=== PATIENT | male | born 1960 | race Caucasian/White ===

== ENCOUNTER 2021-08-25 11:41 | Outpatient (CLI) | payer MEDICARE, BC, SELFPAY ==
--- NOTE | 2021-09-13 13:03 | WPDHOMESLEEP ---
Sleep Study - Home Unattended Date of Study: 08/25/21 <Sharon Hernandez DO - Last Filed: 09/13/21 13:21> Ordering Provider: Iván Kapoor MD <Sharon Hernandez DO - Last Filed: 09/13/21 13:21> Interpreting Provider: Sharon Hernandez DO <Sharon Hernandez DO - Last Filed: 09/13/21 13:21> Home Sleep Study Type: Watch PAT <Sharon Hernandez DO - Last Filed: 09/13/21 13:21> Height: 1.78 m <Sharon Hernandez DO - Last Filed: 09/13/21 13:21> Weight: 132.903 kg <Sharon Hernandez DO - Last Filed: 09/13/21 13:21> Body Mass Index: 42.0 <Sharon Hernandez DO - Last Filed: 09/13/21 13:21> Neck Circumference (inches): 18.25 <Sharon Hernandez DO - Last Filed: 09/13/21 13:21> [place]: 4 <Sharon Hernandez DO - Last Filed: 09/13/21 13:21> Reason for Sleep Study Multiple nighttime awakenings <Sharon Hernandez DO - Last Filed: 09/13/21 13:21> Sleep History The patient is a 60-year-old male with type 2 diabetes, hypertension and anxiety that had a home sleep test ordered by his primary care physician for multiple nighttime awakenings. The patient would wake up during the night in a panic. The patient denies awakening from sleep short of breath. He denies awakening at night with heartburn, belching or cough. He occasionally snores loud enough that others complain. He rarely has trouble sleeping when he has a cold. He denies waking up gasping for air throughout the night. He denies having breathing problems at night observed by others. He occasionally sweats excessively at night. He rarely has heart palpitations throughout the night. He rarely falls asleep during the day and never while driving. He denies sleep paralysis, cataplexy and hypnagogic / hypnopompic hallucinations. He rarely has nightmares. He rarely has thoughts racing through his mind. He rarely feels sad, depressed or anxious. He denies kicking during the night. He denies experiencing crawling and aching feelings in his legs as well as leg pain during the night. He occasionally grinds his teeth during sleep but rarely awakens with morning jaw pain. He is frequently bothered by pain during the day but rarely awakened by pain during the night. He occasionally wakes up feeling stiff in the morning with sore and achy muscles. The patient goes to bed between 10 and 10:30 p.m. on both weekdays and weekends. It takes him 10-15 minutes to fall asleep. He will wake up once throughout the night. When he awakens, he will stay in bed and go back to sleep. It takes him 5-10 minutes to fall back asleep. He wakes up between 530 and 6:00 a.m. on weekdays and weekends. He typically gets 6-7 hours of sleep per night. He will stay in bed for 10 minutes after waking up in the morning. He currently lives with his and 4 children. He does not consume any caffeinated beverages within 2 hours of bedtime. He does not engage in physical exercise before bedtime. He will watch television before falling asleep. He does not take naps in the afternoon or the evening. He quit smoking 33 years ago. He will drink 12 oz of a caffeinated beverage per day. He denies alcohol and recreational drug use. <Sharon Hernandez DO - Last Filed: 09/13/21 13:21> [facility] Past Medical History Medical History: Medical History Achilles tendinitis, left leg Anxiety Cataract Chronic low back pain with right-sided sciatica Controlled type 2 diabetes mellitus without complication, without long-term current use of insulin COVID-19 (~11/09/20) Elevated liver enzymes Essential (primary) hypertension Hypersomnia Mixed hyperlipidemia Morbid obesity with BMI of 40.0-44.9, adult Nocturia Osteoarthritis involving multiple joints on both sides of body Polyp of colon Seasonal allergic rhinitis <Sharon Hernandez DO - Last Filed: 09/13/21 13:21> Family H
[2021-09-13 13:20] VITALS: BMI 42.0
== END 2021-08-26 11:51 | disposition home or self-care (01) ==
LOC: ANHCSM 08-26 11:41
PROVIDERS: PCP Family Medicine; Visit Provider Family Medicine
DX: G47.10 Hypersomnia, unspecified (principal); G47.33 Obstructive sleep apnea (adult) (pediatric)
CPT/HCPCS: 95800

== ENCOUNTER 2021-10-19 07:34 | Outpatient (CLI) | payer MEDICARE, BC, SELFPAY ==
--- NOTE | 2021-11-01 21:35 | WPDSLEEPSTUD ---
Sleep Study Date of Study: 10/19/21 <Sharon Hernandez DO - Last Filed: 11/02/21 17:23> Ordering Provider: Iván Kapoor MD <Sharon Hernandez DO - Last Filed: 11/02/21 17:23> Interpreting Physician: Sharon Hernandez DO <Sharon Hernandez DO - Last Filed: 11/02/21 17:23> Sleep Study Type: CPAP Titration <Sharon Hernandez DO - Last Filed: 11/02/21 17:23> Height: 1.8 m <Sharon Hernandez DO - Last Filed: 11/02/21 17:23> Weight: 133.81 kg <Sharon Hernandez DO - Last Filed: 11/02/21 17:23> Body Mass Index: 41.1 <Sharon Hernandez DO - Last Filed: 11/02/21 17:23> Neck Circumference (inches): 18 <Sharon Hernandez DO - Last Filed: 11/02/21 17:23> [place]: 5 <Sharon Hernandez DO - Last Filed: 11/02/21 17:23> Reason for Sleep Study The patient had an HSAT on 08/25/2021 that showed an AHI of 13.8. The patient had a central apnea index of 3.5. It was recommended he have a PAP Titration study. <Sharon Hernandez DO - Last Filed: 11/02/21 17:23> Sleep History The patient is a 60-year-old male with type 2 diabetes, hypertension and anxiety that had a home sleep test ordered by his primary care physician for multiple nighttime awakenings. The patient would wake up during the night in a panic. The patient denies awakening from sleep short of breath. He denies awakening at night with heartburn, belching or cough. He occasionally snores loud enough that others complain. He rarely has trouble sleeping when he has a cold. He denies waking up gasping for air throughout the night. He denies having breathing problems at night observed by others. He occasionally sweats excessively at night. He rarely has heart palpitations throughout the night. He rarely falls asleep during the day and never while driving. He denies sleep paralysis, cataplexy and hypnagogic / hypnopompic hallucinations. He rarely has nightmares. He rarely has thoughts racing through his mind. He rarely feels sad, depressed or anxious. He denies kicking during the night. He denies experiencing crawling and aching feelings in his legs as well as leg pain during the night. He occasionally grinds his teeth during sleep but rarely awakens with morning jaw pain. He is frequently bothered by pain during the day but rarely awakened by pain during the night. He occasionally wakes up feeling stiff in the morning with sore and achy muscles. The patient goes to bed between 10 and 10:30 p.m. on both weekdays and weekends. It takes him 10-15 minutes to fall asleep. He will wake up once throughout the night. When he awakens, he will stay in bed and go back to sleep. It takes him 5-10 minutes to fall back asleep. He wakes up between 530 and 6:00 a.m. on weekdays and weekends. He typically gets 6-7 hours of sleep per night. He will stay in bed for 10 minutes after waking up in the morning. He currently lives with his and 4 children. He does not consume any caffeinated beverages within 2 hours of bedtime. He does not engage in physical exercise before bedtime. He will watch television before falling asleep. He does not take naps in the afternoon or the evening. He quit smoking 33 years ago. He will drink 12 oz of a caffeinated beverage per day. He denies alcohol and recreational drug use. <Sharon Hernandez DO - Last Filed: 11/02/21 17:23> [facility] Past Medical History Medical History: Medical History Achilles tendinitis, left leg Anxiety Cataract Chronic low back pain with right-sided sciatica Controlled type 2 diabetes mellitus without complication, without long-term current use of insulin COVID-19 (~11/09/20) Elevated liver enzymes Essential (primary) hypertension Hypersomnia Mixed hyperlipidemia Morbid obesity with BMI of 40.0-44.9, adult Nocturia Osteoarthritis involving multiple joints on both sides of body
[2021-11-02 17:21] VITALS: BMI 41.1
== END 2021-10-20 05:37 | disposition home or self-care (01) ==
LOC: ANHCSM 07:35
PROVIDERS: PCP Family Medicine; Visit Provider Family Medicine
DX: G47.33 Obstructive sleep apnea (adult) (pediatric) (principal)
CPT/HCPCS: 95811

== ENCOUNTER 2022-04-06 01:56 | Day surgery (SDC) | payer MEDICARE, BC, SELFPAY ==
[2022-03-27 11:39] VITALS: BMI 41.2
--- NOTE | 2022-04-05 15:54 | WPDANESEPPF ---
Anes - Initial Pre Proc Eval Procedure: Operation Date: 04/06/22 12:30 Proposed Procedures p Screening Colonoscopy - Cj Bahena MD Date/Time: 04/05/22 15:54 Surgeon: Cj Bahena MD Pre Op Diagnosis: hx of colon polyps Patient Data Age: 61 Gender: M Height: 1.8 m Weight: 134 kg Allergies Allergy/AdvReac Type Severity Reaction Status Date / Time No Known Allergies Allergy Verified 03/27/22 11:58 Home Medications Medication Instructions Recorded Confirmed Type cetirizine 10 mg capsule 10 mg PO DAILY PRN allergy symptoms 03/31/20 03/27/22 History fluticasone propionate 50 1 spray intranasal BID 03/31/20 03/27/22 History mcg/actuation nasal spray,suspension (Flonase Allergy Relief) atorvastatin 40 mg tablet 40 mg PO DAILY #90 tabs 07/14/21 03/27/22 Rx cyclobenzaprine 10 mg tablet 10 mg PO TID PRN muscle spasm #180 07/14/21 03/27/22 Rx tabs metformin 500 mg tablet,extended 1,000 mg PO BID #120 tabs 10/05/21 03/27/22 Rx release 24 hr alprazolam 0.25 mg tablet 0.25 mg PO TID PRN anxiety #30 tabs 11/04/21 03/27/22 Rx blood sugar diagnostic (Accu-Chek #100 ea 11/18/21 03/27/22 Rx Hailey Plus test strips) irbesartan 300 1 tablet PO DAILY #90 tabs 01/01/22 03/27/22 Rx mg-hydrochlorothiazide 12.5 mg tablet (Avalide) lancets (Accu-Chek Softclix #100 ea 01/19/22 03/27/22 Rx Lancets) sodium sul 1.479 gram-potas ch See Rx Instructions PO PER PKG DIR 03/24/22 03/27/22 Rx 0.188 gram-magnes sul 0.225 gram #24 tabs tablet (Sutab) ibuprofen 800 mg tablet 800 mg PO TID PRN pain #270 tabs 03/27/22 03/27/22 Rx Patient hx anesthesia problems: none Family hx anesthesia problems: none Results Review: All pre-operative results and documents have been reviewed as part of the pre-operative evaluation. [facility] Past Medical History Medical History (Updated 04/06/22 @ 11:30 by Cj Bahena MD) Achilles tendinitis, left leg Anxiety Cataract Chronic low back pain with right-sided sciatica Contact dermatitis (12/23/21) contact dermatitis from CPAP mask 12/23/2021 Controlled type 2 diabetes mellitus without complication, without long-term current use of insulin COVID-19 (~11/09/20) Elevated liver enzymes Essential (primary) hypertension Hypersomnia Mixed hyperlipidemia Morbid obesity with BMI of 40.0-44.9, adult Nocturia Osteoarthritis involving multiple joints on both sides of body Polyp of colon Seasonal allergic rhinitis Family History Family History Father Diabetes mellitus Family history of hypercholesterolemia Hypertension Cerebrovascular accident Social History Social History (Updated 02/23/22 @ 11:13 by Rebeca Gillis MA) Smoking packs per day: 2.5 Smoking cigarettes per day: 50.0 Years smoked: 14 Smoking pack-years: 35.00 Smoking status: Former smoker Tobacco type: cigarettes Smoking end date: 10/22/87 Alcohol intake: current Alcohol use details: rare Substance use: never Substance use type: does not use Living arrangements: with family Spiritual care concerns: No Anes - Eval Final PreProcedure Day of Procedure 04/05/22 15:54 Patient weight: morbidly obese Heart: regular rate and rhythm Lungs: clear to auscultation Airway: Mallampati scale class II Neurological: alert and oriented Last oral intake: >/= 8 hours ASA classification: III Emergent: no Anesthetic plan: proceed Anesthesia type and monitoring: general GIVS and standard monitoring Results Review: All pre-operative results and documents have been reviewed as part of the pre-operative evaluation. Informed Consent: The patient's anesthetic plan and its attendant risks and benefits were discussed with the patient/family/POA. Questions were solicited and answers provided to the satisfaction of the patient/family/POA.
[2022-04-06 11:09] VITALS: BP 130/90; PULSE 75; RESP 20; TEMP 36.3; O2SAT 97
[2022-04-06] MEDS: LACTATED RINGERS 1,000 ML 150 ML IV CONT (11:18)
[2022-04-06 11:22] LABS: Glucose Point of Care 158 mg/dl (65-105)
--- NOTE | 2022-04-06 11:29 | PM.IMHP ---
H&P: HPI History of Present Illness Date/Time: 04/06/22 11:29 Chief Complaint: History of colon polyps. Narrative: This is a 61-year-old white male patient presents for surveillance colonoscopy. Patient has a history of adenomatous colon polyp removed from the colon in 2014. Patient reports that his current weight appetite bowel movements are normal. He denies abdominal pain. He has had no bleeding. Family history is noncontributory. He presents today for follow-up colonoscopy. Review of Systems Review of Systems: Review of systems noncontributory. [facility] Past Medical History Medical History (Updated 04/06/22 @ 11:30 by Cj Bahena MD) Achilles tendinitis, left leg Anxiety Cataract Chronic low back pain with right-sided sciatica Contact dermatitis (12/23/21) contact dermatitis from CPAP mask 12/23/2021 Controlled type 2 diabetes mellitus without complication, without long-term current use of insulin COVID-19 (~11/09/20) Elevated liver enzymes Essential (primary) hypertension Hypersomnia Mixed hyperlipidemia Morbid obesity with BMI of 40.0-44.9, adult Nocturia Osteoarthritis involving multiple joints on both sides of body Polyp of colon Seasonal allergic rhinitis Family History Family History Father Diabetes mellitus Family history of hypercholesterolemia Hypertension Cerebrovascular accident Social History Social History (Updated 02/23/22 @ 11:13 by Rebeca Gillis MA) Smoking packs per day: 2.5 Smoking cigarettes per day: 50.0 Years smoked: 14 Smoking pack-years: 35.00 Smoking status: Former smoker Tobacco type: cigarettes Smoking end date: 10/22/87 Alcohol intake: current Alcohol use details: rare Substance use: never Substance use type: does not use Living arrangements: with family Spiritual care concerns: No Meds Home Medications and Allergies Home Medications Medication Instructions Recorded Confirmed Type cetirizine 10 mg capsule 10 mg PO DAILY PRN allergy symptoms 03/31/20 03/27/22 History fluticasone propionate 50 1 spray intranasal BID 03/31/20 03/27/22 History mcg/actuation nasal spray,suspension (Flonase Allergy Relief) atorvastatin 40 mg tablet 40 mg PO DAILY #90 tabs 07/14/21 03/27/22 Rx cyclobenzaprine 10 mg tablet 10 mg PO TID PRN muscle spasm #180 07/14/21 03/27/22 Rx tabs metformin 500 mg tablet,extended 1,000 mg PO BID #120 tabs 10/05/21 03/27/22 Rx release 24 hr alprazolam 0.25 mg tablet 0.25 mg PO TID PRN anxiety #30 tabs 11/04/21 03/27/22 Rx blood sugar diagnostic (Accu-Chek #100 ea 11/18/21 03/27/22 Rx Hailey Plus test strips) irbesartan 300 1 tablet PO DAILY #90 tabs 01/01/22 03/27/22 Rx mg-hydrochlorothiazide 12.5 mg tablet (Avalide) lancets (Accu-Chek Softclix #100 ea 01/19/22 03/27/22 Rx Lancets) sodium sul 1.479 gram-potas ch See Rx Instructions PO PER PKG DIR 03/24/22 03/27/22 Rx 0.188 gram-magnes sul 0.225 gram #24 tabs tablet (Sutab) ibuprofen 800 mg tablet 800 mg PO TID PRN pain #270 tabs 03/27/22 03/27/22 Rx Allergies Allergy/AdvReac Type Severity Reaction Status Date / Time No Known Allergies Allergy Verified 03/27/22 11:58 Vital Signs Vital Signs - 24 hr 04/06/22 11:09 Temperature 97.3 F L Pulse Rate 75 Respiratory Rate 20 Blood Pressure 130/90 Pulse Oximetry 97 Oxygen Delivery Room Air Exam Narrative: Physical exam reveals patient to be alert. Vital signs stable. HEENT exam is unremarkable. Patient is anicteric. Lungs are clear to auscultation and percussion. Heart is without murmur or extra sounds. Abdominal exam bowel sounds are present soft nontender with no organomegaly. Digital external rectal exam is normal. Assessment and Plan Assessment and plan (1) History of colon polyps: Code(s): Z86.010 - Personal history of colonic polyps Status: Acute Assessment a
[2022-04-06 12:27] VITALS: BP 99/70; PULSE 67; RESP 25; O2SAT 96
[2022-04-06 12:37] VITALS: BP 109/71; PULSE 61; RESP 21; O2SAT 94
[2022-04-06 12:47] VITALS: BP 108/69; PULSE 60; RESP 17; O2SAT 97
== END 2022-04-06 12:49 | disposition home or self-care (01) ==
PROVIDERS: PCP Family Medicine; Visit Provider Internal Medicine Gastroenterology
PROC: 0DJD8ZZ Inspection of Lower Intestinal Tract, Via Natural or Artificial Opening Endoscopic (ICD-10-PCS; CPT 45378; principal; 2022-04-06 12:30)
DX: Z12.11 Encounter for screening for malignant neoplasm of colon (principal); K64.8 Other hemorrhoids; K57.30 Diverticulosis of large intestine without perforation or abscess without bleeding; Z86.010 Personal history of colon polyps; E11.9 Type 2 diabetes mellitus without complications; I10 Essential (primary) hypertension; E78.2 Mixed hyperlipidemia; E66.01 Morbid (severe) obesity due to excess calories; Z68.41 Body mass index [BMI] 40.0-44.9, adult; Z79.84 Long term (current) use of oral hypoglycemic drugs; Z87.891 Personal history of nicotine dependence
CPT/HCPCS: G0105; 82948; J2704; J7120

== ENCOUNTER → 2023-01-05 09:19 | Outpatient (CLI) | payer MEDICARE, BC, SELFPAY ==
--- NOTE | ~2023-01-05 | XR_ITS ---
EXAMINATION: XR foot RT min 3V DATE: 01/05/2023 09:32 INDICATION: Acute right great toe pain. TECHNIQUE: 4 views of right foot were obtained. COMPARISON: None. FINDINGS: There is mild hallux valgus. No fracture. There is mild osteoarthritis of first metatarsoph alangeal joint and some of the interphalangeal and midfoot joints. There is an enthesophyte at planta r aspect of calcaneal tuberosity. IMPRESSION: 1. Mild polyarticular osteoarthritis. 2. Mild hallux valgus. Reviewed, dictated and finalized at location A.
== END ==
PROVIDERS: PCP Family Medicine; Visit Provider Family Medicine
DX: M79.674 Pain in right toe(s) (principal); M19.071 Primary osteoarthritis, right ankle and foot; M20.11 Hallux valgus (acquired), right foot
CPT/HCPCS: 73630

== ENCOUNTER 2023-08-17 09:47 | Observation (INO) | payer MEDICARE, BC, SELFPAY ==
[2023-08-17] VITALS (52 sets, daily range): BP systolic 116–140; BP diastolic 69–91; PULSE 59–99; RESP 8–32; TEMP 36.2–37.2; O2SAT 91–100
--- NOTE | ~2023-08-17 | US_ITS ---
EXAMINATION: US carotid duplex BI DATE: 08/18/2023 08:26 INDICATION: Vertigo TECHNIQUE: Grayscale, color Doppler, and pulsed Doppler images of the cervical carotid arteries were obtained. The degree of vessel stenosis is placed in one of the following categories: normal, <50%, 5 0-69%, >=70% but less than near-occlusion, near-occlusion, or total occlusion. Note that percent sten osis relative to normal distal artery lumen diameter is indirectly measured from velocity measurement s as described by Adrian, et al. Radiology 2003; 229:340-346. COMPARISON: None. FINDINGS: RIGHT: The right common carotid artery (CCA) peak systolic velocity (PSV) is 79.4 cm/s. The right internal c arotid artery (ICA) PSV is 50.7 cm/s. The right ICA end-diastolic velocity (EDV) is 14.2 cm/s. The ri t ICA/CCA PSV ratio is 0.9. Grayscale and color Doppler images yield an estimate of less than 50% d iameter reduction from plaque in the ICA. The external carotid artery (ECA) PSV is 83.3 cm/s. There i s antegrade flow in the right vertebral artery. LEFT: The left CCA PSV is 76.8 cm/s. The left ICA PSV is 64.5 cm/s. The left ICA EDV is 27.7 cm/s. The left ICA/CCA PSV ratio is 1.2. Grayscale and color Doppler images yield an estimate of less than 50% diam eter reduction from plaque in the ICA. The ECA PSV is 73.1 cm/s. There is antegrade flow in the left vertebral artery. IMPRESSION: 1. Less than 50% stenosis in the right internal carotid artery. 2. Less than 50% stenosis in the left internal carotid artery. Reviewed, dictated and finalized at Location [facility]. Reviewed, dictated and finalized at location A.
--- NOTE | ~2023-08-17 | XR_ITS ---
EXAMINATION: XR chest 2V DATE: 08/17/2023 10:12 INDICATION: Dizziness. TECHNIQUE: Frontal and lateral views of the chest were obtained. COMPARISON: None. FINDINGS: There is mild atelectasis in left lower lung zone. No pleural effusion or pneumothorax. The heart size is normal. IMPRESSION: 1. Mild atelectasis in left lower lung zone. Reviewed, dictated and finalized at location E.
--- NOTE | ~2023-08-17 | MR_ITS ---
EXAMINATION: MR brain/brain stem wo con DATE: 08/18/2023 07:53 INDICATION: vertigo TECHNIQUE: Magnetic resonance imaging (MRI) of the brain and brainstem was performed without intraven ous contrast. Sequences included sagittal and axial T1-weighted SE, axial diffusion-weighted FS EPI A SSET, axial T2*-weighted GRE, axial T2-weighted FLAIR Propeller, and axial T2-weighted Propeller. Juanito arent diffusion coefficient (ADC) maps were created. COMPARISON: CT brain 08/17/2023 FINDINGS: No abnormal restricted diffusion to suggest acute ischemic infarct. No MRI evidence of hemorrhage or extra-axial collection. No suspicious foci of susceptibility to suggest prior intraparenchymal hemorr ekaterina. Scattered foci of white matter hyperintensity, likely representing mild small vessel ischemic d isease. No evidence of advanced or lobar predominant parenchymal volume loss. The basilar cisterns ar e patent. Flow voids are preserved. Paranasal sinuses are within normal limits. Globes and orbital co ntents are within normal limits. IMPRESSION: No acute intracranial process. Reviewed, dictated and finalized at location K.
--- NOTE | ~2023-08-17 | CT_ITS ---
EXAMINATION: CT BRAIN W/O DATE: 08/17/2023 10:08 INDICATION: Dizziness TECHNIQUE: Computed tomography (CT) of the head was performed without intravenous contrast. The dose- length product was 681.00 mGy-cm. Automated exposure control and iterative reconstruction technique w ere employed. COMPARISON: No prior studies for comparison. FINDINGS: Normal brain parenchymal volume for age. Normal garcia-white differentiation. No acute intrac ranial hemorrhage, infarction, mass or mass effect. No ventriculomegaly or midline shift. Midline sagittal images demonstrate a normal corpus callosum, c raniovertebral junction and sella turcica. Basilar cisterns are patent. Paranasal sinuses and mastoids are pneumatized. No depressed skull fractures. IMPRESSION: 1. No acute intracranial abnormality. Reviewed, dictated and finalized at location B.
--- NOTE | 2023-08-17 09:53 | ECG_ITS ---
Measurements Intervals [place] Rate: 68 P: 26 AR: 190 QRS: -23 QRSD: 109 T: -9 QT: 392 QTc: 419 Interpretive Statements SINUS RHYTHM BORDERLINE LEFT AXIS DEVIATION [QRS AXIS < -20] LOW QRS VOLTAGE IN PRECORDIAL LEADS [QRS DEFLECTION < 1.0 mV IN CHEST LEADS] BORDERLINE ECG NO PREVIOUS ECG AVAILABLE FOR COMPARISON Electronically Signed On 08-17-2023 15:09:39 CDT by Farhan Garcia M.D.
[2023-08-17] MEDS: ONDANSETRON INJ 4 MG/2 ML VIAL IV PUSH (10:14)
[2023-08-17] MEDS: MECLIZINE HCL 25 MG TABLET PO (10:14)
[2023-08-17] MEDS: SODIUM CHLORIDE 0.9% IV 500 ML 999 ML IV CONT ×2 (10:18→13:16)
[2023-08-17 10:26] LABS: Basophils Absolute Auto 0.1 K/mm3 (0.0-0.1); Basophils Percent Auto 0.9 % (0.2-1.2); Eosinophils Absolute Auto 0.2 K/mm3 (0-0.3); Eosinophils Percent Auto 2.6 % (0-4.4); Hematocrit 45.3 % (42.0-52.0); Hemoglobin 15.5 g/dL (14.0-18.0); Immature Granulocyte Absolute 0.04 K/mm3 (0.00-0.031); Immature Granulocyte Percent A 0.6 % (0-0.5); Lymphocytes Percent Auto 24.3 % (18.3-44.2); Mean Corpuscular HGB Conc 34.2 g/dl (32-36); Mean Corpuscular Hemoglobin 28.6 pg (26-34); Mean Corpuscular Volume 83.6 fl (80-100); Mean Platelet Volume 9.1 fl (7.4-10.4); Monocytes Absolute Auto 0.3 K/mm3 (0.1-0.6); Monocytes Percent Auto 4.4 % (2.6-8.5); Neutrophils Absolute Auto 4.7 K/mm3 (1.3-6.7); Neutrophils Percent Auto 67.2 % (45.5-73.1); Platelet Count Result 213 k/mm3 (150-375); Red Blood Count 5.42 M/mm3 (4.6-6.20); Red Cell Distribution Width 13.2 % (11.5-14.5)
--- NOTE | 2023-08-17 10:28 | ED.DIZZY ---
HPI - Dizziness General Chief Complaint: Dizziness <Lisa Sorenson PA-C - Last Filed: 08/17/23 14:33> Stated Complaint: vertigo, sinus infection <FERNANDO Christian Last Filed: 08/17/23 14:33> Time Seen by Provider: 08/17/23 09:54 <FERNANDO Christian Last Filed: 08/17/23 14:33> Source: patient <FERNANDO Christian Last Filed: 08/17/23 14:33> Mode of arrival: ambulatory <FERNANDO Christian Last Filed: 08/17/23 14:33> Limitations: no limitations <FERNANDO Christian Last Filed: 08/17/23 14:33> History of Present Illness HPI Narrative: This is a 62 year old male that presents to the ER for dizziness. Ongoing since this morning. Reports room spinning dizziness. Associated with nausea and vomiting. Reports he is currently being treated for a sinus infection with a Z pack. Denies fever, vision changes, or focal numbness or weakness. <FERNANDO Christian Last Filed: 08/17/23 14:33> Related Data Home Medications: Home Medications Medication Instructions Recorded Confirmed cetirizine 10 mg capsule 10 mg PO DAILY PRN allergy symptoms 03/31/20 08/17/23 fluticasone propionate 50 1 spray intranasal BID 03/31/20 08/17/23 mcg/actuation nasal spray,suspension (Flonase Allergy Relief) medical cannabis See Rx Instructions .Route .COMPLEX 06/27/22 08/17/23 cyclobenzaprine 10 mg tablet 10 mg PO DAILY muscle spasm 08/17/23 08/17/23 <FERNANDO Christian Last Filed: 08/17/23 14:33> Allergies/Adverse Reactions: Allergies Allergy/AdvReac Type Severity Reaction Status Date / Time No Known Allergies Allergy Verified 08/17/23 16:47 <FERNANDO Christian Last Filed: 08/17/23 14:33> Review of Systems Review of Systems: CONSTITUTIONAL: Denies fever EYES: Denies visual changes CARDIOVASCULAR: Denies chest pain, palpitations, or edema. RESPIRATORY: Denies dyspnea. GASTROINTESTINAL: Reports nausea, vomiting NEUROLOGIC: Denies headache, numbness, or weakness. <Lisa Sorenson PA-C - Last Filed: 08/17/23 14:33> All systems reviewed & are unremarkable except as noted in HPI and below <Lisa Sorenson PA-C - Last Filed: 08/17/23 14:33> [facility] Past Medical History Medical History: Medical History (Updated 08/17/23 @ 13:40 by Lisa Sorenson PA-C) Achilles tendinitis, left leg Acute non-recurrent maxillary sinusitis Anxiety BMI 37.0-37.9, adult Cataract Chronic low back pain with right-sided sciatica Chronic pain chronic low back pain. Medical cannabis application 06/27/2022 Contact dermatitis (12/23/21) contact dermatitis from CPAP mask 12/23/2021 Controlled type 2 diabetes mellitus without complication, without long-term current use of insulin Glucose 129 with hemoglobin A1c 6.3 on 06/19/2022. Glucose 117 with hemoglobin A1c 6.8 with urine microalbumin ratio of 54 on 12/19/2022. glucose 137 with hemoglobin A1c 6.4 on 07/03/2023. COVID-19 (~11/09/20) COVID-19 (~12/12/22) 2nd episode Elevated liver enzymes AST 40 with ALT 53 on 12/19/2022. AST 28, ALT 38 on 07/03/2023. Encounter for prostate cancer screening PSA 0.86 on 12/19/2022. Essential (primary) hypertension Hypersomnia Mixed hyperlipidemia Total cholesterol 105, triglycerides 121, HDL 40, LDL 45 on 06/19/2022. Total cholesterol 203, HDL 37, triglycerides 281, LDL 123 on 12/19/2022. Cholesterol 102, triglycerides 151, HDL 35, LDL 44 with ratio 2.9 on 07/03/2023. Morbid obesity with BMI of 40.0-44.9, adult Nocturia Obesity (BMI 30-39.9) Osteoarthritis involving multiple joints on both sides of body Pain of right great toe (~12/2022) Polyp of colon Adenomatous polyp 2015. Colonoscopy on 04/07/2022 Was negative for polyps with recheck in 5-[address] Bahena. Seasonal allergic rhinitis <Lisa Sorenson PA-C - Last Filed: 08/17/23 14:33> Family History Family History: Family History Father
[2023-08-17 10:37] LABS: Alanine Aminotransferase 47 U/L (6-50); Albumin Level 4.7 g/dL (3.5-5.1); Alkaline Phosphatase 68 U/L (38-126); Anion Gap 12 mmol/L (8-16); Aspartate Amino Transferase 42 U/L (17-59); Blood Urea Nitrogen 13 mg/dL (9-20); Calcium 9.7 mg/dL (8.4-10.2); Carbon Dioxide 23 mmol/L (22-30); Chloride 102 mmol/L (98-107); Estimated CRCL calculation 115 ml/min; Estimated Glomerular Filt Rate > 60; Glucose 177 mg/dL (65-110); Potassium 4.3 mmol/L (3.4-5.0); Sodium 137 mmol/L (137-145)
[2023-08-17 12:23] LABS: Appearance Urine Clear (Clear); Bilirubin Urine Negative (Negative); Blood Urine Negative (Negative); Color Urine Yellow (Yellow); Glucose Urine UA Negative (Negative); Ketones Urine Negative (Negative); Leukocyte Esterase Ur Negative LEU/UL (Negative); Nitrate Urine Negative (Negative); Protein Urine Negative (Negative); Specific Grav Ur 1.009 (1.001-1.035); Urobilinogen Urine 0.2 mg/dL (<2.0)
[2023-08-17 12:27] LABS: Add Urine Microscopic? NO
[2023-08-17] MEDS: diazePAM INJ (*CRX) 10 MG/2 ML SYRINGE 5 MG IV PUSH (12:39)
--- NOTE | 2023-08-17 13:37 | PC.NURSE ---
patient unable to ambulate d/t dizziness. he was able to stand at bedside for brief moment but unable to move. states that the bed seems like it is moving. provider aware
--- NOTE | 2023-08-17 16:44 | PM.IMHP ---
H&P: HPI History of Present Illness Date/Time: 08/17/23 19:00 Chief Complaint: Dizziness. Narrative: This is a a very pleasant 62-year-old male with hypertension, hyperlipidemia, and type 2 diabetes mellitus with a recent hemoglobin A1c of 6.4% who presented to the emergency department via private vehicle from home for evaluation of dizziness. The patient provides the following history. This morning he awoke with severe dizziness which he describes as room spinning associated with nausea and vomiting. It is so severe that he cannot even stand to ambulate. With further questioning he endorses sinus pressure and in fact he is on day 2 of a Z-Ivan currently. He has a history of vertigo in the symptoms are similar but seemed to be more severe. He denies fever, chills, sweats, otalgia, odynophagia, tinnitus, aural fullness, cough, visual changes, facial droop, difficulty speaking, difficulty swallowing, focal weakness, and paresthesias. Vital signs were stable on arrival to the ED. CMP and CBC are pretty unremarkable. EKG showed sinus rhythm with borderline left axis deviation and low QRS voltage in precordial leads. Chest x-ray and brain CT were without acute findings. He was given ondansetron, meclizine, and diazepam in the ED and due to ongoing symptoms he is being admitted for further treatment and evaluation. Review of Systems Review of Systems: Twelve systems were reviewed and are negative except for as per HPI. [facility] Past Medical History Medical History Achilles tendinitis, left leg Acute non-recurrent maxillary sinusitis Anxiety BMI 37.0-37.9, adult Cataract Chronic low back pain with right-sided sciatica Chronic pain chronic low back pain. Medical cannabis application 06/27/2022 Contact dermatitis (12/23/21) contact dermatitis from CPAP mask 12/23/2021 Controlled type 2 diabetes mellitus without complication, without long-term current use of insulin Glucose 129 with hemoglobin A1c 6.3 on 06/19/2022. Glucose 117 with hemoglobin A1c 6.8 with urine microalbumin ratio of 54 on 12/19/2022. glucose 137 with hemoglobin A1c 6.4 on 07/03/2023. COVID-19 (~11/09/20) COVID-19 (~12/12/22) 2nd episode Elevated liver enzymes AST 40 with ALT 53 on 12/19/2022. AST 28, ALT 38 on 07/03/2023. Encounter for prostate cancer screening PSA 0.86 on 12/19/2022. Essential (primary) hypertension Hypersomnia Mixed hyperlipidemia Total cholesterol 105, triglycerides 121, HDL 40, LDL 45 on 06/19/2022. Total cholesterol 203, HDL 37, triglycerides 281, LDL 123 on 12/19/2022. Cholesterol 102, triglycerides 151, HDL 35, LDL 44 with ratio 2.9 on 07/03/2023. Morbid obesity with BMI of 40.0-44.9, adult Nocturia Obesity (BMI 30-39.9) Osteoarthritis involving multiple joints on both sides of body Pain of right great toe (~12/2022) Polyp of colon Adenomatous polyp 2015. Colonoscopy on 04/07/2022 Was negative for polyps with recheck in 5-[address] Bahena. Seasonal allergic rhinitis Family History Family History Father Diabetes mellitus Family history of hypercholesterolemia Hypertension Cerebrovascular accident Social History Social History Smoking packs per day: 2.5 Smoking cigarettes per day: 50.0 Years smoked: 14 Smoking pack-years: 35.00 Smoking status: Never smoker Tobacco type: cigarettes Smoking end date: 10/22/87 Alcohol intake: never Alcohol use details: rare Substance use: never Substance use type: prescription drug Other substance usage details: Occasional use of medical cannabis. Lack of Transportation: No Lack of Food: Never True Current Housing: I Have Housing Concerned About Future Housing: No Difficulty Paying Gas/Electric Bills: No Difficulty Paying for Meds: No Currently Unemployed: No Education: Don't Know
--- NOTE | 2023-08-17 16:47 | ADMGEN ---
This patient, Munir Garcia Sr., was admitted to Medical Room 250-01. Patient/family oriented to hospital policies and general routines including ID bracelet, bed and alarms, visiting hours, pain management, procedures, bathroom and other care routines, personal items, smoking policy, room service/diet, and visiting hours. Information on how to activate the Rapid Response Team has been discussed. Patient/Family are encouraged to report perceived risks to care and to ask questions if they do not understand what they are told or what they should do.
[2023-08-17 16:58] LABS: Glucose Point of Care 188 mg/dl (65-105)
[2023-08-17 20:02] LABS: Glucose Point of Care 109 mg/dl (65-105)
[2023-08-17] MEDS: metFORMIN HCL XR 500 MG TAB.SR.24H 1000 MG PO (21:59)
[2023-08-17] MEDS: ACETAMINOPHEN 325 MG TABLET 650 MG PO (21:59)
[2023-08-17] MEDS: AZITHROMYCIN 250 MG TABLET PO (21:59)
[2023-08-18] VITALS (8 sets, daily range): BP systolic 105–145; BP diastolic 63–89; PULSE 60–89; RESP 14–18; TEMP 36.6–36.8; O2SAT 96–97
[2023-08-18] MEDS: ATORVASTATIN 40 MG TABLET PO (08:27)
[2023-08-18] MEDS: FLUTICASONE PROPIONATE 0.05% NA SPR 16 GM BTL (*BKC) 1 SPRAY NASAL (08:28)
[2023-08-18] MEDS: AZITHROMYCIN 250 MG TABLET PO (08:28)
[2023-08-18] MEDS: metFORMIN HCL XR 500 MG TAB.SR.24H 1000 MG PO ×2 (08:28→17:21)
[2023-08-18] MEDS: hydroCHLOROthiazide 12.5 MG CAPSULE PO (08:32)
[2023-08-18] MEDS: IRBESARTAN 150 MG TABLET 300 MG PO (08:32)
[2023-08-18 08:33] LABS: Glucose Point of Care 137 mg/dl (65-105)
[2023-08-18 12:09] LABS: Glucose Point of Care 123 mg/dl (65-105)
--- NOTE | 2023-08-18 14:29 | PM.IMPN ---
Progress Note: A&P Assessment and Plan (1) Vertigo: Code(s): R42 - Dizziness and giddiness Status: Acute Assessment and Plan: Most likely benign vertigo, could be exacerbated by sinusitis. Carotid doppler negative MRI brain pendign Meclizine as needed Vertigo is likely from URTI (2) Sinus infection: Code(s): J32.9 - Chronic sinusitis, unspecified Status: Acute Assessment and Plan: Continue Z-Ivan. (3) Type 2 diabetes mellitus: Code(s): E11.9 - Type 2 diabetes mellitus without complications Status: Acute Assessment and Plan: Continue metformin. Recent A1c was 6.4%. Initiate sliding scale insulin, Accu-Cheks, and hypoglycemic protocol. (4) Essential (primary) hypertension: Code(s): I10 - Essential (primary) hypertension Status: Acute Assessment and Plan: Blood pressures were reviewed and they are stable. Continue antihypertensives and monitor. (5) Obstructive sleep apnea on CPAP: Code(s): G47.33 - Obstructive sleep apnea (adult) (pediatric) Status: Acute Assessment and Plan: CPAP will be provided for the patient to use while hospitalized. Plan DVT prophylaxis on Sq Lovenox Subjective Date/time seen: 08/18/23 14:29 Interval history: Patient stated symptoms has resolved awaiting MRI result for discharge, will discharge if MRI is negative, if otherwise will stay for further eval Review of Systems Review of Systems: Twelve systems were reviewed and are negative except for as per HPI. Exam Narrative: General: Well-developed, nontoxic-appearing male in the semi-Lindsey position in bed. Weight: 131 kg. BMI: 40.3. HEENT: Normocephalic, atraumatic. PERRL, EOMI. Sclera anicteric. Oral mucosa moist. Oropharynx clear. Neck: Supple. No carotid bruits. Respiratory: Lungs are clear to auscultation bilaterally. Cardiovascular: Regular rate and rhythm with S1-S2. Gastrointestinal: Abdomen is soft, nontender, and nondistended with positive bowel sounds. Skin: Warm and dry. No rash or lesions on limited exam. Extremities: No cyanosis, clubbing, or edema. Radial and pedal pulses intact. Neurological: Alert and oriented. Cranial nerves 2-12 are grossly intact. Speech is clear. No facial asymmetry. No pronator drift. Normal [id number] and rapid alternating movements. Strength 5/5 in upper and lower extremities. Psychiatric: Pleasant and cooperative with normal mood and affect. Judgment and insight intact. Objective Data Vital Signs Vital Signs: Vital Signs - 24 hr 08/17/23 14:30 08/17/23 14:31 08/17/23 14:45 Temperature Pulse Rate 72 73 75 Respiratory Rate 16 17 17 Blood Pressure 128/78 Pulse Oximetry 93 93 Oxygen Delivery 08/17/23 14:46 08/17/23 15:00 08/17/23 15:01 Temperature Pulse Rate 74 72 71 Respiratory Rate 13 17 18 Blood Pressure 140/91 H 137/84 Pulse Oximetry Oxygen Delivery 08/17/23 15:57 08/17/23 16:12 08/17/23 17:49 Temperature 98.9 F Pulse Rate 99 86 86 Respiratory Rate 21 H 16 16 Blood Pressure 134/87 128/85 Pulse Oximetry 100 97 97 Oxygen Delivery Room Air 08/17/23 20:10 08/17/23 21:50 08/17/23 20:00 Temperature 98.0 F Pulse Rate 63 63 Respiratory Rate 12 Blood Pressure 121/70 Pulse Oximetry 97 Oxygen Delivery Room Air 08/18/23 00:00 08/18/23 04:00 08/17/23 23:20 Temperature Pulse Rate 64 60 Respiratory Rate Blood Pressure Pulse Oximetry Oxygen Delivery Autopap 08/18/23 04:41 08/18/23 08:31 08/18/23 08:30 Temperature 98.2 F Pulse Rate 65 75 Respiratory Rate 14 18 Blood Pressure 105/63 134/86 Pulse Oximetry 97 96 Oxygen Delivery Room Air 08/18/23 11:00 08/18/23 12:00 Temperature Pulse Rate 68 89 Respiratory Rate Blood Pressure Pulse Oximetry Oxygen Delivery Intake/Output Intake/Output: Intake & Output 08/15/23 08/16/23
[2023-08-18 16:56] LABS: Glucose Point of Care 135 mg/dl (65-105)
--- NOTE | 2023-08-19 08:38 | PM.DS ---
DS: Admitting Diagnosis Discharge Date 08/18/23 Admitting Diagnosis Vertigo DS: Discharge Diagnosis Discharge Diagnosis (1) Vertigo: Code(s): R42 - Dizziness and giddiness Status: Acute DS: Summary Hospital Course Hospital Course: This is a a very pleasant 62-year-old male with hypertension, hyperlipidemia, and type 2 diabetes mellitus with a recent hemoglobin A1c of 6.4% who presented to the emergency department via private vehicle from home for evaluation of dizziness. The patient provides the following history. This morning he awoke with severe dizziness which he describes as room spinning associated with nausea and vomiting. It is so severe that he cannot even stand to ambulate. With further questioning he endorses sinus pressure and in fact he is on day 2 of a Z-Ivan currently. He has a history of vertigo in the symptoms are similar but seemed to be more severe. He denies fever, chills, sweats, otalgia, odynophagia, tinnitus, aural fullness, cough, visual changes, facial droop, difficulty speaking, difficulty swallowing, focal weakness, and paresthesias. Vital signs were stable on arrival to the ED. CMP and CBC are pretty unremarkable. EKG showed sinus rhythm with borderline left axis deviation and low QRS voltage in precordial leads. Chest x-ray and brain CT were without acute findings. He was given ondansetron, meclizine, and diazepam in the ED and due to ongoing symptoms he is being admitted for further treatment and evaluation. Vertigo resolved and MRI brain no acute intracrabial process. carotid doppler no significant stenosis Patient was discharged to follow up with PCP in 3-5 days Assessment and Plan (1) Vertigo: ?Code(s): R42 - Dizziness and giddiness ?Status:?Acute ?Assessment and Plan: Most likely benign vertigo, could be exacerbated by sinusitis. Carotid doppler negative MRI brain negative Meclizine as needed Vertigo is likely from URTI f/u with PCP in 3-5 days (2) Sinus infection: ?Code(s): J32.9 - Chronic sinusitis, unspecified ?Status:?Acute ?Assessment and Plan: Continue Z-Ivan. (3) Type 2 diabetes mellitus: ?Code(s): E11.9 - Type 2 diabetes mellitus without complications ?Status:?Acute ?Assessment and Plan: Continue metformin. Recent A1c was 6.4%. Initiate sliding scale insulin, Accu-Cheks, and hypoglycemic protocol. (4) Essential (primary) hypertension: ?Code(s): I10 - Essential (primary) hypertension ?Status:?Acute ?Assessment and Plan: Blood pressures were reviewed and they are stable.? Continue antihypertensives and monitor. (5) Obstructive sleep apnea on CPAP: ?Code(s): G47.33 - Obstructive sleep apnea (adult) (pediatric) ?Status:?Acute ?Assessment and Plan: CPAP will be provided for the patient to use while hospitalized. F/u with PCP In 3-5 days Time Spent with Patient Time attestation: Total time spent providing and/or coordinating discharge services: DS: Data Data Completed and Pending Labs on day of discharge: Labs from last 24 hours 08/18/23 08/18/23 16:52 12:00 POC Capillary Glucose 135 H 123 H Discharge Plan Discharge Attending physician on discharge: Cheo Nicholas Discharging Clinician: Cheo Nicholas Anticipated Discharge Date/Time: 08/18/23 14:26 Patient Disposition: Home, Self-Care Activity: as tolerated Diet: regular Patient Instructions: Antibiotic Form, Pain Management (GEN) Stand Alone Forms: General Discharge Information Follow-up/Referrals: Iván Kapoor MD [Primary Care Provider] - (f/u with PCP in 3-5 days ) Discharge Medications: Continued medical cannabis See Rx Instructions .ROUTE .COMPLEX Patient Comments: application for medical cannabis 06/27/2022 Rx Instructions: Pt takes cannabis gummies as needed. cetirizine 10 mg capsule 10 mg PO DAILY PRN (Reason: allergy symptom
== END 2023-08-18 17:35 | disposition home or self-care (01) ==
LOC: ANHED 14:32 → ANH3MEDSUR 14:58 → ANH2MED 15:41
PROVIDERS: Admitting Provider Internal Medicine; Emergency Provider Physician Assistant; PCP Family Medicine; Visit Provider Internal Medicine
DX: R42 Dizziness and giddiness (principal); J32.9 Chronic sinusitis, unspecified; F12.90 Cannabis use, unspecified, uncomplicated; M62.838 Other muscle spasm; F41.9 Anxiety disorder, unspecified; G89.29 Other chronic pain; M54.50 Low back pain, unspecified; G47.33 Obstructive sleep apnea (adult) (pediatric); Z99.89 Dependence on other enabling machines and devices; I10 Essential (primary) hypertension; E11.9 Type 2 diabetes mellitus without complications; J98.11 Atelectasis; E78.2 Mixed hyperlipidemia; M15.9 Polyosteoarthritis, unspecified; Z68.41 Body mass index [BMI] 40.0-44.9, adult; Z86.16 Personal history of COVID-19; Z79.899 Other long term (current) drug therapy
CPT/HCPCS: 36415; 70450; 70551; 71046; 80053; 81003; 82948; 85025; 93005; 93880; 96361; 96374; 96375; 99285; A9270; G0378; J2405; J3360; J7040